=== PATIENT | female | born 2000 | race African-American/Black ===

== ENCOUNTER 2021-11-28 18:25 | Emergency (ER) | payer OTHER ==
[~2021-11-28] VITALS: Ht 157.5 cm; Wt 52.7 kg
[2021-11-28 18:49] VITALS: BP 120/67
[2021-11-28] MEDS ORDERED: MINERAL OIL/PETROLATUM 120 GM CREAM TP ONE (19:45)
== END 2021-11-28 20:38 | disposition home or self-care (01) ==
LOC: EMS 18:28
DX: T23.421A Corrosion of unspecified degree of single right finger (nail) except thumb, initial encounter (principal); Y93.89 Activity, other specified; Y92.89 Other specified places as the place of occurrence of the external cause; Y99.0 Civilian activity done for income or pay
CPT/HCPCS: 16000; 16020; 99282; Z7502; Z7610